=== PATIENT | female | born 1970 | race Caucasian/White ===

== ENCOUNTER 2016-11-24 10:38 | Inpatient (IN) | payer OTHER ==
[2016-11-24] MEDS ORDERED: ONDANSETRON 4 MG/2 ML VIAL IVP ONE (11:20)
[2016-11-24] MEDS ORDERED: NS 1,000 ML IV ONE (11:20)
--- NOTE | 2016-11-24 11:23 | EDPHY ---
H & P Stated Complaint: lower abd cramping since last night n/v, worse eating, passing gas Source: Patient Exam Limitations: No limitations - Personal History LMP (Females 10-55): Hysterectomy Current Tetanus/Diphtheria Vaccine: Unsure - Medical/Surgical History Hx Asthma: No Hx Chronic Respiratory Disease: No Hx Diabetes: No Hx Cardiac Disease: No Hx Renal Disease: No Hx Cirrhosis: No Hx Alcoholism: No Hx HIV/AIDS: No Hx Splenectomy or Spleen Trauma: No Other PMH: appy. c sec. hysterectomy. sbo 05/21 - Social History Smoking Status: Never smoked Time Seen by Provider: 11/24/16 11:08 HPI/ROS: CHIEF COMPLAINT: abdominal pain, nausea HISTORY OF PRESENT ILLNESS: 46-year-old female presents emergency department complaining of abdominal pain, cramping and nausea that started yesterday. Patient reports her pain is worse after eating, she had 2 episodes of emesis yesterday. Patient had a hysterectomy 6 months ago followed by a small bowel obstruction 1 week later, she is concerned about this. Patient states she stopped eating and her pain improved mildly, she attempted to drink mint tea this morning and developed cramping again. Patient reports having a small bowel movement this morning, she is passing gas, no diarrhea, no coffee-ground emesis or hematochezia, no dark tarry stools or blood in her stool. Patient is visiting from [place]. She denies chest pain or shortness of breath, denies burning with urination the reports urinary frequency, does complain of mild back pain that she noticed last night. REVIEW OF SYSTEMS: A comprehensive 10 point review of systems is otherwise negative aside from elements mentioned in the history of present illness. (Lena Augustine) - Physical Exam Exam: Physical Exam Gen: Alert and Oriented, NAD HEENT: PERRL, moist mucous membranes NECK: no meningismus CV: regular rate and regular rhythm PULM: CTAB, no wheezes ABDOMEN: soft, diffuse mild tenderness to palpation, no masses, no peritoneal signs, hypoactive bowel sounds BACK: Mild left-sided CVA tenderness NEURO: Neurologically grossly intact EXTREMITIES: normal appearing SKIN: no rash or break in skin on exposed skin PSYCH: answers questions appropriately. (Lena Augustine) Constitutional: Initial Vital Signs Temperature (C) 36.7 C 11/24/16 10:42 Heart Rate 113 H 03/22/17 10:42 Respiratory Rate 16 11/24/16 10:42 Blood Pressure 106/88 H 11/24/16 10:42 O2 Sat (%) 97 11/24/16 10:42 O2 Delivery Mode Room Air Allergies/Adverse Reactions: No Known Allergies Allergy (Unverified 11/24/16 10:41) Home Medications: Medication Instructions Recorded NK [No Known Home Meds] 11/24/16 Medical Decision Making - Diagnostics Imaging: CT abdomen pelvis with IV contrast- Impression: 1. Mild partial SBO involving mid to distal small bowel with point of transition in the mid pelvis just below the level of the umbilicus to the left of midline. 2. Nonobstructive 2 mm calculus mid to lower left kidney. Findings discussed with Lena Augustine NP at 12:40 hour, 11/24/2016. Dictated By: Lawson Hadley MD (Lena Augustine) ED Course/Re-evaluation: IV established, CBC, chemistry panel, urinalysis and CT abdomen pelvis with IV contrast has been ordered. WBC is mildly elevated at 10,000 thousand with a left shift, chemistry panel is unremarkable aside from a glucose of 125. She has normal renal functions. CT abdomen pelvis with IV contrast shows a mild partial small bowel obstruction that is consistent with her exam. I have consulted with Dr. Octaviano Peñaloza and the patient will be admitted to hospitalist for observation. Patient is comfortable with this plan. (Lena Augustine) - Data Points Laboratory Results: Laboratory Results 11/24/16 11:15 11/24/16 11:15 11/24/16 11/24/16 11/24/16 11:30 11:15 11:15 WBC 10.72 10^3/uL H 10^3/uL (3.80-9.50) RBC 5.38 10^6/uL H 10^6/uL (4.18-5.33) Hgb 16.1 g/dL g/dL (12.6-16.3) Hct 47.4 % H % (38.0-47.0) MCV 88.1 fL fL (81.5-99.8) MCH 29.9 pg pg (27.9-34.1) MCHC 34.0 g/dL g/dL (32.4-36.7) RDW 12.8 % % (11.5-15.2) Plt Count 373 10^3/uL 10^3/uL (150-400) MPV 11.1 fL fL (8.7-11.7) Neut % (Auto) 78.1 % H % (39.3-74.2) Lymph % (Auto) 14.3 % L % (15.0-45.0) [place] % (Auto) 6.6 % % (4.5-13.0) Eos % (Auto) 0.1 % L % (0.6-7.6) Baso % (Auto) 0.6 % % (0.3-1.7) Nucleat RBC Rel Count 0.0 % % (0.0-0.2) Absolute Neuts (auto) 8.38 10^3/uL H 10^3/uL (1.70-6.50) Absolute Lymphs (auto) 1.53 10^3/uL 10^3/uL (1.00-3.00) Absolute Monos (auto) 0.71 10^3/uL 10^3/uL (0.30-0.80) Absolute Eos (auto) 0.01 10^3/uL L 10^3/uL (0.03-0.40) Absolute Basos (auto) 0.06 10^3/uL 10^3/uL (0.02-0.10) Absolute Nucleated RBC 0.00 10^3/uL 10^3/uL (0-0.01) Immature Gran % 0.3 % % (0.0-1.1) Immature Gran # 0.03 10^3/uL 10^3/uL (0.00-0.10) Sodium 142 mEq/L mEq/L (134-144) Potassium 4.6 mEq/L mEq/L (3.5-5.2) Chloride 102 mEq/L mEq/L (97-110) Carbon Dioxide 26 mEq/l mEq/l (22-31) Anion Gap 14 mEq/L mEq/L (8-16) BUN 21 mg/dL mg/dL (7-23) Creatinine 0.7 mg/dL mg/dL (0.6-1.0) Estimated GFR > 60 Glucose 125 mg/dL H mg/dL (70-100) Calcium 10.8 mg/dL H mg/dL (8.5-10.4) Phosphorus 4.8 mg/dL H mg/dL (2.5-4.5) Urine Color OSEI Urine Appearance HAZY Urine pH 7.0 (5.0-7.5) Ur Specific [place] 1.021 (1.002-1.030) Urine Protein 1+ H (NEGATIVE) Urine Ketones 2+ H (NEGATIVE) Urine Blood NEGATIVE (NEGATIVE) Urine Nitrate NEGATIVE (NEGATIVE) Urine Bilirubin NEGATIVE (NEGATIVE) Urine Urobilinogen NEGATIVE EU EU (0.2-1.0) Ur Leukocyte Esterase NEGATIVE (NEGATIVE) Urine RBC 3-5 /hpf H /hpf (0-3) Urine WBC 3-5 /hpf H /hpf (0-3) Ur Epithelial Cells TRACE /lpf /lpf (NONE-1+) Urine Bacteria TRACE /hpf H /hpf (NONE SEEN) Hyaline Casts 1-5 /lpf /lpf (0-1) Urine Mucus 4+ /lpf H /lpf (NONE-1+) Ur Culture Indicated? NOT INDICATED (NI) Urine Glucose NEGATIVE (NEGATIVE) Medications Given: Discontinued Medications Sodium Chloride (Ns) 1,000 mls @ 0 mls/hr IV ONCE ONE PRN Reason: Wide Open Stop: 11/24/16 11:21 Last Admin: 11/24/16 11:31 Dose: 1,000 mls Ondansetron HCl (Zofran) 4 mg IVP EDNOW ONE Stop: 11/24/16 11:21 Last Admin: 11/24/16 11:31 Dose: 4 mg Departure - Departure Disposition: [facility] In[facility] Acute Clinical Impression: Partial small bowel obstruction Condition: Fair
[2016-11-24 11:25] LABS: % IMMATURE GRANULYOCYTES 0.3 % (0.0-1.1); ABSOLUTE IMMATURE GRANULOCYTES 0.03 10^3/uL (0.00-0.10); ADD DIFF? NO; ADD MORPH? NO; ADD SCAN? NO; ATYPICAL LYMPHOCYTE FLAG 20 (0-99); FRAGMENT RBC FLAG 0 (0-99); HEMATOCRIT 47.4 % (38.0-47.0); HEMOGLOBIN 16.1 g/dL (12.6-16.3); LEFT SHIFT FLG 0 (0-99); LIPEMIA HEMOLYSIS FLAG 90 (0-99); MEAN CELL HEMOGLOBIN 29.9 pg (27.9-34.1); MEAN CELL VOLUME 88.1 fL (81.5-99.8); MEAN PLATELET VOLUME 11.1 fL (8.7-11.7); PLATELET CLUMPS FLAG 0 (0-99); PLATELET COUNT 373 10^3/uL (150-400); RED BLOOD CELL COUNT 5.38 10^6/uL (4.18-5.33); RED CELL DISTRIBUTION WIDTH 12.8 % (11.5-15.2)
[2016-11-24 11:39] LABS: COLOR AMBER; LEUKOCYTE ESTERASE,URINE NEGATIVE (NEGATIVE); NITRITE,URINE NEGATIVE (NEGATIVE)
[2016-11-24 11:43] LABS: ANION GAP 14 mEq/L (8-16); CALCIUM 10.8 mg/dL (8.5-10.4); CARBON DIOXIDE 26 mEq/l (22-31); CHLORIDE 102 mEq/L (97-110); CREATININE 0.7 mg/dL (0.6-1.0); GLOMERULAR FILTRATION RATE > 60; GLUCOSE 125 mg/dL (70-100); POTASSIUM 4.6 mEq/L (3.5-5.2); SODIUM 142 mEq/L (134-144)
[2016-11-24] MEDS ORDERED: IOPAMIDOL (ISOVUE-300) 100 ML BTL IV ONE (11:52)
[2016-11-24 12:02] LABS: BACTERIA TRACE /hpf (NONE SEEN); MUCUS 4+ /lpf (NONE-1+)
[2016-11-24] MEDS ORDERED: HYDROmorphONE/DILAUDID 1 MG/ML SYR IVP PRN (13:58)
[2016-11-24] MEDS ORDERED: LORazepam 2 MG/ML INJ IVP PRN (13:58)
[2016-11-24] MEDS ORDERED: ONDANSETRON 4 MG/2 ML VIAL IVP PRN (13:58)
[2016-11-24] MEDS ORDERED: NS 1,000 ML IV SCH (14:00)
--- NOTE | 2016-11-24 14:47 | GHP ---
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 She is traveling to [place] for a ski vacation with her family. Yesterday, after eating lunch, she had some abdominal pain and cramping, as well as nausea. She stopped eating lunch at that point. She had 2 episodes of emesis yesterday; they were non-bloody, no coffee-grounds. She attempted to h ave some mint tea this morning, and developed cramping again, as well as some chills, but no fever. She had a small bowel movement this morning and passing gas. There has been no diarrhea. She has had no recent signs of GI bleeding such as melena or bright red blood per rectum. She has no urinary symptoms. No shortness of breath. During her last admission for her small-bowel obstruction, which was about a week after her abdomina l hysterectomy, she was in the hospital for 6 days. REVIEW OF SYSTEMS: Complete 10-point review of systems conducted and negative, except as noted in t he HPI. PAST MEDICAL HISTORY: 1. A total abdominal hysterectomy for fibroids, with benign pathology. 2. A history of appendectomy. 3. Laparoscopy x2, otherwise. 4. History of small-bowel obstruction. ALLERGIES: No known drug allergies. HOME MEDICATIONS: None. 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 Lives in [place] with her family. She has an 8-year-old son. She drinks occasional wine a couple days a week. She does not smoke cigarettes or use street drugs. FAMILY HISTORY: Notable for diabetes and hyperlipidemia in her mother. PHYSICAL EXAMINATION: VITAL SIGNS: Temperature 36.7, blood pressure 106/88, pulse 113, it is now 7 6, respiratory rate 16, breathing 97% on room air. GENERAL: No acute distress. HEENT: Sclerae an icteric. Oropharynx clear. Mucous membranes are moist. NECK: Supple, without lymphadenopathy or JVD. LUNGS: Clear to auscultation bilaterally. HEART: S1, S2. Not tachycardic. There is no mur mur. ABDOMEN: Soft. It is not distended. There is no rebound or guarding. It is diffusely tende r. Bowel sounds are hypoactive in the inferior abdomen, but they are normal on the rest of the abdo men. EXTREMITIES: Lower extremities without edema. Calves are nontender. SKIN: Without rash. N EUROLOGIC: Exam is nonfocal. LABORATORY DATA: White count is 10.7, hematocrit 47, platelets 373,000. Sodium 142, potassium 4.6, chloride 102, bicarbonate 26, BUN 21, creatinine 0.7, glucose 125, calcium is slightly high at 10.8 . Phos is 4.8. UA shows 3-5 red cells, 3-[address] shows a partial small-bowel obstruction in the mid to distal small bowel, with transiti on point in the pelvis, as well as a nonobstructive calculus in left lower kidney. I have reviewed/ interpreted them myself. I have discussed the case with Dr. Octaviano Peñaloza, as well as Lena Lainez in, MILITARY TECHNOLOGY MANAGER, in the emergency department. ASSESSMENT AND PLAN: A 46-year-old female with small-bowel obstruction. 1. Small-bowel obstruction. This is mild, but it is certainly present, and also had a history of t his in the past. I think, at this point in time, there is no indication for an NG tube. She has in termittent tachycardia. We should check a lactate for completeness sake. For the time being, we wi ll do n.p.o. and IV fluids. 2. Hypercalcemia. It is only modestly elevated. We will follow. 3. Hyperphosphatemia. Again, modestly elevated. We will follow. We have no prior lab values on h ere. She does have a small kidney stone. She may be at risk for hyperparathyroidism. 4. Leukocytosis. This is consistent with a reaction for a small-bowel obstruction. 5. Prophylaxis. She is low risk. Pharmacologic prophylaxis can be withheld unless she is in the h ospital longer than 48 hours. 6. Disposition. Given the length of time that she was in the hospital last time, I will admit her inpatient status. /[id number]/MODL
--- NOTE | 2016-11-24 15:31 | PDCONSULT ---
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 She developed abdominal pain, nausea and emesis over the past 24 hours and presented to the hospital for evaluation. Shehas a history of SBO after a JULI last year one week post op that resolved without intervention. She denies hematemesis, melena, hematochezia. Her pain has subsided since arriving at the hospital. She was admitted to the hosptialist service by Dr. 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 No significant intra-abdominal fluid or extraluminal air/ Imp: partial SBO s/p multiple prior abdominal surgeries Rec: Agree with admission for observation/sips of clears/ If symptoms worsen I would recommend a small bowel follow through We discussed the possible need for surgery if this fails to resolve. Azeb Peñaloza M.D.
[2016-11-25 04:53] LABS: ADD DIFF? NO; ADD MORPH? NO; ADD SCAN? NO; FRAGMENT RBC FLAG 0 (0-99); HEMATOCRIT 37.4 % (38.0-47.0); HEMOGLOBIN 12.3 g/dL (12.6-16.3); LEFT SHIFT FLG 0 (0-99); LIPEMIA HEMOLYSIS FLAG 80 (0-99); MEAN CELL HEMOGLOBIN CONCENTR. 32.9 g/dL (32.4-36.7); MEAN CELL VOLUME 91.2 fL (81.5-99.8); PLATELET CLUMPS FLAG 0 (0-99)
[2016-11-25 05:00] LABS: % IMMATURE GRANULYOCYTES 0.4 % (0.0-1.1); ABSOLUTE IMMATURE GRANULOCYTES 0.03 10^3/uL (0.00-0.10); ATYPICAL LYMPHOCYTE FLAG 20 (0-99); MEAN PLATELET VOLUME 11.1 fL (8.7-11.7); PLATELET COUNT 264 10^3/uL (150-400)
[2016-11-25 05:27] LABS: ANION GAP 9 mEq/L (8-16); CALCIUM 8.7 mg/dL (8.5-10.4); CARBON DIOXIDE 24 mEq/l (22-31); CHLORIDE 110 mEq/L (97-110); CREATININE 0.6 mg/dL (0.6-1.0); GLOMERULAR FILTRATION RATE > 60; GLUCOSE 100 mg/dL (70-100); POTASSIUM 4.2 mEq/L (3.5-5.2); SODIUM 143 mEq/L (134-144)
[2016-11-25] MEDS ORDERED: ACETAMINOPHEN 325 MG TAB PO PRN (06:26)
--- NOTE | 2016-11-25 06:30 | SOAPPROG ---
SOAP Progress Note Assessment/Plan: Assessment:resolving partial SBO Plan:low residue diet/SBFT if symptoms recur Tylenol for fever 11/25/16 06:29 Subjective: c/o headache/+nausea last night had BM and feels better now Objective: Vital Signs Temp Pulse Resp BP Pulse Ox 36.7 C 61 12 112/71 94 11/24/16 20:00 11/24/16 20:00 11/24/16 20:00 11/24/16 20:00 11/24/16 20:00 Laboratory Results 11/25/16 04:36 11/25/16 04:36 11/24/16 11/25/16 11/26/16 05:59 05:59 05:59 Intake Total 1000 Balance 1000 Physical Exam - Physical Exam General Appearance: mild distress Abdomen: normal bowel sounds, non-tender, soft, other (no significant distention ) Neuro/Psych: normal mood/affect, oriented x 3 ICD10 Worksheet Patient Problems: Problems Problem Status Onset Partial small bowel obstruction Acute
[2016-11-25 07:56] VITALS: BP 119/70; PULSE 84; RESP 16; TEMP 98.2; O2SAT 96
--- NOTE | 2016-11-25 16:15 | GDS ---
[f rep st] DISCHARGE SUMMARY DISCHARGE DIAGNOSES: 1. Recurrent small bowel obstruction. 2. Hypercalcemia. 3. Hyperphosphatemia. 4. Leukocytosis. 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 She is traveling here from [place] with her family for a ski vacation in [place]. After eating lunch yesterday, she had abdominal pain, cramping, and nausea. She stopped eating at that point and had 2 episodes of nonbloody emesis. She had some mint tea the day of admission, but the cramping resumed and chills. Denies fevers. She had a small BM the day of admission and passin g gas. HOSPITAL COURSE: 1. Small bowel obstruction. CT showed mild partial SBO involving distal small bowel with point of transition in the midpelvis just below the umbilicus. The patient was made n.p.o. and treated with IV fluids. Appreciate surgical consultation. Last night, the patient had a bowel movement, is pass ing flatus. She tolerated breakfast and lunch today without any symptoms and wished to be discharge d. 2. Hypercalcemia. This resolved with fluids. 3. Hypophosphatemia, resolved. 4. Leukocytosis, likely inflammation with SBO, resolved. DISPOSITION: Patient is stable for discharge. RECOMMENDATION: Follow up with her primary care physician. She was advised to return to the hospit al if she has recurrent abdominal pain, nausea, vomiting. /[id number]/MODL
== END 2016-11-25 14:39 | disposition home or self-care (01) | DRG 390 ==
LOC: OBSVTOIN 13:05 → F3E 15:10
PROVIDERS: ADMIT Internal Medicine; ATTEND Surgery
DX: K56.60 Unspecified intestinal obstruction (principal); E83.52 Hypercalcemia; E83.39 Other disorders of phosphorus metabolism; D72.829 Elevated white blood cell count, unspecified; Z90.710 Acquired absence of both cervix and uterus
CPT/HCPCS: 96374; J1170; J2405; Q9967